=== PATIENT | male | born 1935 | race Caucasian/White ===

== ENCOUNTER 2016-09-04 14:21 | Outpatient (CLI) ==
[2016-09-04 14:51] LABS: ANION GAP 12.1; BUN/CREATININE RATIO 15.05; CALCIUM 8.9 mg/dL (8.2-10.2); CREATININE 0.93 mg/dL (0.60-1.10); POTASSIUM 3.1 mmol/L (3.5-5.1)
== END 2016-09-04 14:22 | disposition home or self-care (01) ==
LOC: NONPT 14:21
PROVIDERS: ATTEND Family Medicine
DX: E87.1 Hypo-osmolality and hyponatremia (principal); E87.6 Hypokalemia
CPT/HCPCS: 80048